=== PATIENT | male | born 1985 | race Caucasian/White ===

== ENCOUNTER 2024-10-08 23:19 | Emergency (ER) | payer OTHER, SELFPAY ==
[2024-10-08 23:20] VITALS: BP 135/83
--- NOTE | 2024-10-09 00:32 | ED.GENMED ---
History of Present Illness
<FREYA Hays - Last Filed: 10/09/24 01:58>
General
Chief Complaint: Back Pain
Source: patient and family
Exam Limitations: none
Time Seen by Provider: 10/09/24 00:32
Nursing documentation reviewed up to this point in time: agreed with
History of Present Illness
History of Present Illness:
Pt is a 39 y/o M w/ no significant PMH who presents to ED with worsening Left mid-back pain and dyspnea x1 week after pt states he lifted a heavy object at home and felt soreness afterwards. He states it has been constant but has worsened over the
past day. He has tried ibuprofen to alleviate the pain but notes it has not helped much. He states the pain feels 'deep' and feels it more on inspiration. Pt states the pain does not radiate. Pt also admits to dyspnea that began today and is
mild-moderate, which is what made him come to the ER. Pt states it is constant and feels like 'tightness' on inspiration but not worsening. Pt denies fever, n/v/d/c, chest pain, palpitations, wheezing, dysuria, hematuria, hematochezia, loss of
feeling/sensation in extremities x 4.
If applicable-neuro sx onset
Onset of symptoms known: Yes
Date of onset of symptoms: 10/03/24
Past History
<FREYA Hays - Last Filed: 10/09/24 01:58>
Past History
ED Past Medical History: Hypothyroidism
ED Past Surgical History: Orthopedic
Review of Systems
<FREYA Hays - Last Filed: 10/09/24 01:58>
Review of Systems
Allergies reviewed?: Yes
Other source history: family
Constitutional: Reports no symptoms
Respiratory: Reports trouble breathing (tightness with inspiration)
Cardiac: Reports no symptoms
ABD/GI: Reports no symptoms
: Reports no symptoms
Musculoskeletal: Reports back pain (Left mid-back pain that pt reports feels 'deep')
Skin: Reports no symptoms
Neurological: Reports no symptoms
Phy Exam
<FREYA Hays - Last Filed: 10/09/24 01:58>
General Physical Exam
General Presentation: well appearing and no apparent distress
General age: appears stated age
General Skin: warm and dry
General Mental: alert
General Hydration: appears well hydrated
Cardiovascular Exam
Cardiovascular Exam: regular rate/rhythm
Pulmonary Exam
Pulmonary Exam: lungs clear and no respiratory distress
Musculoskeletal Exam
Musculoskeletal Exam: back pain (pain with deep palpation of L thoracic musculature)
Course
<FREYA Hays - Last Filed: 10/09/24 01:58>
Orders/Labs/Results
Orders:
Orders
10/09/24 00:57
Cyclobenzaprine HCl [Flexeril] 10 mg PO NOW STA
Ketorolac [Toradol] 30 mg IM NOW STA
Thoracic Spine 2 Views [CR Thoracic Spine 2 Views] Urgent
Comment:
Reason For Exam: left mid back pain
Vital Signs
Initial and Last Documented VS:
Initial Vital Signs
Temp Pulse Resp BP Pulse Ox
98.0 F 93 18 135/83 98
10/08/24 23:20 10/08/24 23:20 10/08/24 23:20 10/08/24 23:20 10/08/24 23:20
Last Documented Vital Signs
Temp Pulse Resp BP Pulse Ox
98.0 F 93 18 135/83 98
10/08/24 23:20 10/08/24 23:20 10/08/24 23:20 10/08/24 23:20 10/08/24 23:20
<Reji Schumacher DO - Last Filed: 10/09/24 01:58>
Orders/Labs/Results
Orders:
Orders
10/09/24 00:57
Cyclobenzaprine HCl [Flexeril] 10 mg PO NOW STA
Ketorolac [Toradol] 30 mg IM NOW STA
Thoracic Spine 2 Views [CR Thoracic Spine 2 Views] Urgent
Comment:
Reason For Exam: left mid back pain
Vital Signs
Initial and Last Documented VS:
Initial Vital Signs
Temp Pulse Resp BP Pulse Ox
98.0 F 93 18 135/83 98
10/08/24 23:20 10/08/24 23:20 10/08/24 23:20 10/08/24 23:20 10/08/24 23:20
Last Documented Vital Signs
Temp Pulse Resp BP Pulse Ox
98.0 F 93 18 135/83 98
10/08/24 23:20 10/08/24 23:20 10/08/24 23:20 10/08/24 23:20 10/08/24 23:20
<FREYA Hays - Last Filed: 10/09/24 01:58>
MDM/Problems Addressed
Differential Diagnosis Includes:
muscle strain, rib fracture
<FREYA Hays - Last Filed: 10/09/24 01:58>
*Critical Care Note
Total Time (30-74mins, 75-104mins- exclusive of procedures): Not Applicable
<FREYA Hays - Last Filed: 10/09/24 01:58>
Update Note
Update Note:
10/09/24 @ 01:40AM GLORIA TERRELL: pt states repositioning and medication have helped alleviate most of his pain
<Reji Schumacher DO - Last Filed: 10/09/24 01:58>
Update Note
Update Note:
1:55 AM on reassessment, patient states he is feeling much better and feels comfortable going. X-ray without acute pathology
ED Attending Note
<FREYA Hays - Last Filed: 10/09/24 01:58>
-
Portions of this chart may have been created with voice recognition software.� Occasional wrong word or��sound alike� substitutions may have occurred due to the inherent limitations of voice recognition software.
<Reji Schumacher DO - Last Filed: 10/09/24 01:58>
ED Attending Note
Patient seen and examined by attending physician: Yes
I performed the substantive portion of visit, reviewed & personally made and approve the management plan that is documented in note by myself or ASHLEY.: Yes
ED Attending Note:
I have seen and evaluated the patient with a [id number] encounter. I have spoken to the advance practicer provider student and involved in the medical history, the physical exam, medical decision making.
Evaluation and management service: agree unless noted differently below.
Results interpretation: agree unless noted differently below.
Focused HPI: 39-year-old male presenting with left mid back pain. This occurred about a week ago while he was lifting his [place] decorations. Tylenol and Motrin has offered minimal relief. Patient now developing pain when he takes a deep
breath. Patient denies leg pain or swelling
Physical exam: Muscle spasm noted to left mid thoracic musculature. No midline tenderness. Lungs are clear
Medical Decision Making: Will treat muscle spasm with Toradol and Flexeril. His shortness of breath is likely related to muscle strain overlying ribs. Lungs are clear. Will obtain thoracic x-ray
Discharge Plan
Departure
Patient Disposition: Home (Routine Discharge)
Date of Disposition: 10/09/24
Time of Disposition: 01:55
Patient with high blood pressure during this ER visit?: No
Discharge Problem:
Muscle strain of left upper back
Instructions: Upper Back Pain (DC)
Prescriptions:
New
diclofenac potassium 50 mg tablet
50 mg PO BID Qty: 20 0RF
cyclobenzaprine 10 mg Tablet
10 mg PO TIDPRN PRN (Reason: muscle spasm) Qty: 12 0RF
Referrals:
UNKNOWN - PT DOES,NOT KNOW [Family Provider] -
Activity Restrictions/Additional Instructions:
Please return for any worsening symptoms.
You may return at any time if you have further concerns.
Please follow up with your doctor at the first available appointment, preferably this week.
Thank you for choosing [facility].
Interventions
Interventions:
*General Assessment Last Done: 10/08/24 23:20
ED- Fall Risk Assessment Last Done: 10/09/24 01:16
*ED COVID-19 Vaccine History Last Done: 10/08/24 23:20
ED-Musculoskeletal Assessment Last Done: 10/09/24 01:16
Discharge Date and Time
Print Language: SAMI
[2024-10-09] MEDS: FLEXERIL 10 MG PO (01:06)
[2024-10-09] MEDS: TORADOL 30 MG IM (01:06)
== END 2024-10-09 02:11 | disposition home or self-care (01) ==
LOC: EMR 23:19
PROVIDERS: EMERGENCY PHYSICIAN Student in an Organized Health Care Education/Training Program
DX: S29.012A Strain of muscle and tendon of back wall of thorax, initial encounter (principal); X58.XXXA Exposure to other specified factors, initial encounter; E03.9 Hypothyroidism, unspecified
CPT/HCPCS: 99283; 96372; 72070

== ENCOUNTER 2024-12-12 16:09 | Emergency (ER) | payer OTHER, SELFPAY ==
[2024-12-12 16:21] VITALS: BP 159/95
--- NOTE | 2024-12-12 16:22 | ED.GENMED ---
ED Provider Triage
-
Patient seen by provider in Triage?: Seen in Triage
Attestation: A medical screening examination has been initiated by a qualified medical provider. Based on the assessment performed at this time, it has been determined that an emergent medical condition may exist and the patient has been informed
that further medical evaluation and possible additional diagnostic testing may be needed.
HPI: 39-year-old male presenting the ER for evaluation of cough that has been ongoing since . Patient went to urgent care twice, last time a couple of days ago patient was given a prescription for steroid and antibiotic but has not
had any improvement. Today felt worse and had a fever. Patient children were sick around as well but have fully recovered. Patient with no other concerns. Labs including D-dimer ordered.
GENERAL: Alert , in no apparent distress
EYE: No visual abnormalities.
NECK: Trachea midline
ENT: No visible abnormalities.
LUNGS: No acute respiratory distress
NEUROLOGICAL: Alert and oriented
SKIN: Skin intact. No visible changes.
MUSCULOSKELETAL: Moving extremities normally
PSYCH: Normal and appropriate interaction.
This is a medical evaluation conducted in person to initiate diagnostic evaluation and provide initial therapeutics. Please see further documentation by the treating clinician.
History of Present Illness
General
Chief Complaint: Cough
Source: patient
Time Seen by Provider: 12/12/24 17:35
History of Present Illness
History of Present Illness:
39-year-old male presenting to the ER for evaluation of upper respiratory symptoms that has been waxing and waning since , multiple family members also ill with flu during this time. Patient states he has had a lingering cough despite
antibiotics and steroids did not receive any relief, recommended to come to the ER for further evaluation. Patient states today symptoms seem to get a little bit worse with a temperature Tmax of 99.9 and associated sore throat.
Past History
Past History
ED Past Medical History: Hypothyroidism
ED Past Surgical History: Orthopedic
Social History
Tobacco: Non-smoker
Alcohol: None
Drug: None
Personal:
Living: with family
Employment: Employed
Review of Systems
Review of Systems
All Other Systems: ROS reviewed and negative except as documented in HPI and ROS
Phy Exam
Physical Exam
Physical Exam:
GENERAL: Alert , in no apparent distress
EYE: conjunctiva clear
Head: Normocephalic atraumatic
NECK: Supple,
ENT: mmm.
LUNGS: no acute respiratory distress
NEUROLOGICAL: Alert and oriented
SKIN: Warm and dry, skin intact.
MUSCULOSKELETAL: well perfused.
PSYCH: Normal and appropriate interaction.
Scores
Heart Failure Risk
Heart Failure Risk Score: Not Applicable
Heart Score for Chest Pain Patients
STEMI patient?: Not applicable
Withdrawal Assessment of Alcohol
Withdrawal Assessment Completed?: Not applicable
Course
Orders/Labs/Results
Orders:
Orders
12/12/24 16:38
Basic Metabolic Panel Urgent
COVID-19 Antigen Urgent
Source: Nasal Swab
Complete Blood Count/With Diff Urgent
D-Dimer Urgent
NT-proBNP Urgent
Influenza A+B Rapid Molecular Urgent
[place] Source: Nasal Swab
Specimen Description:
Abnormal Lab Results
12/12/24
16:38
RBC 4.59 L 10^6/uL
(4.70-6.10)
Absolute Lymphs (auto) 1.0 L 10^3/uL
(1.2-3.4)
Absolute Monos (auto) 0.8 H 10^3/uL
(0.1-0.6)
Lymphocytes % 14.9 L %
(20.5-51.1)
Monocytes % 11.5 H %
(1.7-9.3)
BUN 21 H mg/dl
(9-20)
12/12/24 16:38
12/12/24 16:38
Vital Signs
Initial and Last Documented VS:
Initial Vital Signs
Temp Pulse Resp BP Pulse Ox
98.8 F 83 20 159/95 98
12/12/24 16:21 12/12/24 16:21 12/12/24 16:21 12/12/24 16:21 12/12/24 16:21
Last Documented Vital Signs
Temp Pulse Resp BP Pulse Ox
98.8 F 83 20 159/95 98
12/12/24 16:21 12/12/24 16:21 12/12/24 16:21 12/12/24 16:21 12/12/24 16:21
MDM/Problems Addressed
Differential Diagnosis Includes:
COVID, flu, pneumonia
MDM/Problems Addressed:
39-year-old male presenting to the ER for evaluation of persisting cough and flulike symptoms despite antibiotics and steroids recently. Multiple family members at home sick with similar symptoms. Labs including D-dimer ordered due to minimal
improvement of symptoms. Patient ultimately tested positive for the flu. Remaining labs unremarkable. Patient hemodynamically stable, immunocompetent. Stable for discharge home. Prescription for Tamiflu sent to pharmacy. Aware of return
precautions.
*Pulse Oximetry
Patient hypoxic: no
*Critical Care Note
Total Time (30-74mins, 75-104mins- exclusive of procedures): Not Applicable
ED Attending Note
-
Portions of this chart may have been created with voice recognition software.� Occasional wrong word or��sound alike� substitutions may have occurred due to the inherent limitations of voice recognition software.
Discharge Plan
Departure
Patient Disposition: Home (Routine Discharge)
Date of Disposition: 12/12/24
Time of Disposition: 17:39
Patient with high blood pressure during this ER visit?: Yes
Discharge Problem:
Influenza A
Instructions: Flu in adults - Discharge instructions
Prescriptions:
New
oseltamivir [Tamiflu] 75 mg capsule
75 mg PO BID 5 Days Qty: 10 0RF
No Action
diclofenac potassium 50 mg tablet
50 mg PO BID Qty: 20 0RF
cyclobenzaprine 10 mg Tablet
10 mg PO TIDPRN PRN (Reason: muscle spasm) Qty: 12 0RF
Stand Alone Forms: Return to Work
Interventions
Interventions:
*Risk Screen - Suicide Last Done: 12/12/24 16:21
Discharge Date and Time
Print Language: YEMENI
[2024-12-12 16:52] LABS: % Eosinophils 2.1 % (0-6); % Immature Granulocytes 0.4 % (0-0.5); % Lymphocytes 14.9 % (20.5-51.1); % Monocytes 11.5 % (1.7-9.3); % Neutrophils 70.1 % (42.2-75.2); Absolute Basophils 0.1 10^3/uL (0-0.2); Absolute Eosinophils 0.1 10^3/uL (0-0.7); Absolute Monocytes 0.8 10^3/uL (0.1-0.6); Absolute Neutrophils 4.7 10^3/uL (1.4-6.5); Hemoglobin 14.1 g/dL (13.0-18.0); Mean Corp Hgb Conc. 34.4 g/dL (33.0-37.0); Mean Corpuscular Hgb 30.7 pg (27.0-31.0); Mean Corpuscular Volume 89.3 fL (80.0-94.0); Mean Platelet Volume 9.1 fL (7.4-10.4); Nucleated Red Blood Cells % 0 % (-); Platelet Count 268 10^3/uL (130-400); Red Blood Cell Count 4.59 10^6/uL (4.70-6.10); White Blood Cell Count 6.7 10^3/uL (4.8-10.8)
[2024-12-12 17:05] LABS: D-Dimer < 0.27 ug/mlFEU (0.00-0.50)
[2024-12-12 17:09] LABS: Blood Urea Nitrogen 21 mg/dl (9-20); Calcium 9.4 mg/dl (8.4-10.2); Carbon Dioxide 25 mmol/L (22-30); Chloride 102 mmol/L (98-107); Glucose 97 mg/dl (70-99); Potassium 4.1 mmol/L (3.5-5.1); Sodium 137 mmol/L (135-145); eGFR > 60.00
[2024-12-12 17:13] LABS: NT-proBNP 178 pg/ml
[2024-12-12 17:27] LABS: COVID-19 Antigen Negative (Negative)
== END 2024-12-12 18:02 | disposition home or self-care (01) ==
LOC: EMR 16:09
PROVIDERS: Physician Assistant Medical; EMERGENCY PHYSICIAN Emergency Medicine; FAMILY PHYSICIAN Family Medicine
DX: J10.1 Influenza due to other identified influenza virus with other respiratory manifestations (principal); E03.9 Hypothyroidism, unspecified
CPT/HCPCS: 99283; 80048; 83880; 85025; 85379; 87502; 87811